=== PATIENT | female | born 1955 | race Caucasian/White ===

== ENCOUNTER 2017-11-19 09:24 | Emergency (ER) | payer OTHER ==
[~2017-11-19] VITALS: Ht 160 cm; Wt 68.0 kg
== END 2017-11-19 09:40 | disposition home or self-care (01) ==
LOC: ER 09:24
DX: T18.128A Food in esophagus causing other injury, initial encounter (principal); F17.200 Nicotine dependence, unspecified, uncomplicated
CPT/HCPCS: 99283

== ENCOUNTER 2018-01-01 20:15 | Emergency (ER) | payer OTHER ==
[~2018-01-01] VITALS: Ht 160 cm; Wt 70.3 kg
[2018-01-01 20:53] LABS: Source, Urine Clean Catch
[2018-01-01 20:58] LABS: Blood, Urine 4+ (Neg); Glucose Qualitative, Urine Neg (Neg); Ketones, Urine Neg (Neg); Leukocyte Esterase, Urine Neg (Neg); Nitrite, Urine Neg (Neg); Protein, Urine Neg (Neg); Urobilinogen, Urine NORM (Normal); pH, Urine 6.5 (5.0-8.0)
[2018-01-01 21:04] LABS: Troponin I <0.015 ng/mL (0.000-0.040)
[2018-01-01 21:08] LABS: Appearance, Urine Clear (Clear); Bilirubin, Urine 1+ (Neg); Color, Urine Yellow (P-Yellow)
[2018-01-01 21:10] LABS: Bacteria Mod /hpf; Squamous Epithelial Cells Few /hpf (Few)
[2018-01-01 21:13] LABS: Alanine Aminotransfer (ALT/SGP 1286 U/L (12-78); Albumin/Globulin Ratio 1.1 (0.8-1.8); Alk Phos 227 U/L (50-136); Anion Gap 8 mmol/L (6-16); Aspartate Aminotrans (AST/SGOT 1553 U/L (12-37); Bilirubin, Total 3.4 mg/dL (0.1-1.0); Blood Urea Nitrogen 12 mg/dL (8-24); Bun/Creatinine Ratio 14.6 (12.0-20.0); CO2, Blood 29 mmol/L (21-32); Calcium, Blood 9.9 mg/dL (8.5-10.1); Chloride, Blood 103 mmol/L (98-108); Creatinine, Blood 0.82 mg/dL (0.40-1.00); Globulin, Blood 3.8 g/dL (2.2-4.0); Glomerular Filtration Rate >60 (60-); Glucose, Blood 106 mg/dL (70-99); Potassium, Blood 3.6 mmol/L (3.5-5.5); Sodium, Blood 140 mmol/L (136-145); Total Protein, Blood 7.8 g/dL (6.4-8.2)
[2018-01-01 21:19] LABS: BASOPHILS ABSOLUTE AUTO 0.05 K/mm3 (0.00-0.23); BASOPHILS PERCENT AUTO 1 % (0-2); EOSINOPHILS ABSOLUTE AUTO 0.19 K/mm3 (0.00-0.68); EOSINOPHILS PERCENT AUTO 3 % (0-6); Hematocrit 43.3 % (33.0-51.0); Hemoglobin 14.5 g/dL (11.5-16.0); IMMATURE GRAN ABSOLUTE AUTO 0.02 K/mm3 (0.00-0.10); IMMATURE GRAN PERCENT AUTO 0 % (0-1); LYMPHOCYTES ABSOLUTE AUTO 1.88 K/mm3 (0.84-5.20); LYMPHOCYTES PERCENT AUTO 30 % (21-46); MONOCYTES ABSOLUTE AUTO 0.37 K/mm3 (0.16-1.47); MONOCYTES PERCENT AUTO 6 % (4-13); Mean Corpuscular HGB 31.5 pg (26.0-34.0); Mean Corpuscular HGB Conc 33.5 g/dL (31.5-36.5); Mean Corpuscular Volume 94 fL (80-100); Mean Platelet Volume 10.2 fL (9.1-12.4); NEUTROPHILS ABSOLUTE AUTO 3.71 K/mm3 (1.96-9.15); NEUTROPHILS PERCENT AUTO 60 % (41-73); Platelet Count 361 K/mm3 (150-400); RDW Coefficient Variation 12.5 % (11.7-14.2); RDW Standard Deviation 43.5 fL (35.1-46.3); White Blood Cell Count 6.22 K/mm3 (4.00-11.30)
[2018-01-02 02:17] LABS: Ethanol (Alcohol), Blood, Med <3 mg/dL
[2018-01-02 02:31] LABS: Acetaminophen, Random <2.0 ug/mL (10.0-30.0)
== END 2018-01-02 03:55 | disposition short-term general hospital (02) ==
LOC: ER 20:15
PROVIDERS: Emergency Medicine
DX: K85.10 Biliary acute pancreatitis without necrosis or infection (principal); F17.200 Nicotine dependence, unspecified, uncomplicated
CPT/HCPCS: 36415; 71046; 76705; 80053; 81001; 83690; 83880; 84484; 85025; 87086; 93005; 93010; 96361; 96374; 96375; 96376; 99285-25; G0480; J1170; J2405; J2550; J7030

== ENCOUNTER 2018-12-20 09:06 | Day surgery (SDC) | payer OTHER ==
[~2018-12-20] VITALS: Ht 160 cm; Wt 71.4 kg
[~2018-12-20 09:06] MED LIST: PRAV20
--- NOTE | 2018-12-20 11:08 | NUR ---
12/20/18 1108 Elier Perez 3 MLS SALINE INJECTED IN BX PORT FOR POLYPECTOMY PER ORDER. PT RETCHING DURING CASE. SUCTIONED ORALLY WITH A SCANT AMOUNT OF CLEAR SECRETIONS.
--- NOTE | 2018-12-20 11:39 | NUR ---
12/20/18 1139 Elier Perez PT C/O THROAT PAIN IN STEP DOWN D/T RETCHING DURING CASE. GIVEN COLD WATER. PT STATES IMPROVES SOME WITH THIS. PT EDUCATED THIS SHOULD IMPROVE WITHIN THE NEXT DAY OR SO. PT EDUCATED TO MONITOR THIS THROAT PAIN. PT STATES AN UNDERSTANDING.
== END 2018-12-20 11:50 | disposition home or self-care (01) ==
LOC: ORSCSDS 09:06
PROVIDERS: Internal Medicine Gastroenterology
PROC: 0DBL8ZX Excision of Transverse Colon, Via Natural or Artificial Opening Endoscopic, Diagnostic (ICD-10-PCS; principal; 2018-12-20 10:30)
PROC: 0DBH8ZX Excision of Cecum, Via Natural or Artificial Opening Endoscopic, Diagnostic (ICD-10-PCS; principal; 2018-12-20 10:30)
DX: Z12.11 Encounter for screening for malignant neoplasm of colon (principal); D12.3 Benign neoplasm of transverse colon; K52.9 Noninfective gastroenteritis and colitis, unspecified; K57.30 Diverticulosis of large intestine without perforation or abscess without bleeding; K64.8 Other hemorrhoids; F17.210 Nicotine dependence, cigarettes, uncomplicated
CPT/HCPCS: 88305; J2405; J2704; J7120